=== PATIENT | female | born 1960 | race Caucasian/White ===

== ENCOUNTER 2016-08-27 09:43 | Outpatient (CLI) | payer OTHER | END 2016-08-27 23:00 | disposition home or self-care (01) | LOC: LAB SRH 09:43 | DX: M51.9 Unspecified thoracic, thoracolumbar and lumbosacral intervertebral disc disorder (principal); M25.561 Pain in right knee; N62 Hypertrophy of breast; E78.2 Mixed hyperlipidemia | CPT/HCPCS: 90074; 90100; 92690 ==